=== PATIENT | male | born 1990 | race Caucasian/White ===

== ENCOUNTER 2021-04-02 18:05 | Emergency (ER) | payer OTHER, SELFPAY ==
--- NOTE | ~2021-04-02 | XR_ITS ---
EXAMINATION: XR ankle LT min 3V, XR foot LT min 3V DATE: 04/02/2021 18:32 INDICATION: Bruising and swelling at the lateral left foot and ankle after jumping 10 feet. TECHNIQUE: 1. Anteroposterior, mortise, additional oblique and lateral view of the left ankle were obtained. 2. Dorsoplantar, two oblique and lateral views of the left foot were obtained. COMPARISON: None. FINDINGS: Alignment of the foot and ankle is normal. Subtle linear lucencies projecting over the cuboid on the lateral projection which are suspicious for nondisplaced fracture. Mild soft tissue swelling at the d orsolateral aspect of the midfoot. Joint spaces are well maintained. No ankle joint effusion. IMPRESSION: 1. Suspicion for nondisplaced fracture of the cuboid. Would consider CT for more definitive determina tion. Reviewed, dictated and finalized at location A. IMPRESSION: 1. Suspicion for nondisplaced fracture of the cuboid. Would consider CT for mor e definitive determination.
--- NOTE | ~2021-04-02 | CT_ITS ---
EXAMINATION: CT foot LT wo con DATE: 04/02/2021 19:08 INDICATION: Cuboid fracture TECHNIQUE: Computed tomography (CT) of the left foot and ankle was performed without intravenous cont rast. Sagittal and coronal reconstructions were obtained. Automated exposure control and iterative re construction technique were employed. The dose-length product was 344.61 mGy-cm. COMPARISON: Radiographs dated 04/02/2021 FINDINGS: Mildly comminuted intra-articular fracture of the cuboid. The main fracture plane extends obliquely b etween the proximal and distal articular surfaces of the cuboid with up to 2-3 mm widening of the fra cture plane at the proximal articular surface and with less than 1 mm lucent fracture gap at the dist al articular surface. There is a second subtle nondisplaced fracture plane extending obliquely across the dorsolateral aspect of the proximal articular surface. There is an additional nondisplaced fract ure extending horizontally across the plantar aspect of the lateral cuneiform which does not appear t o involve the articular surface. No other fractures identified. Normal alignment of the joint space w ith no joint space narrowing. Small bone island at the lateral malleolus. Soft tissue swelling with s ubcutaneous edema at the dorsolateral aspect of the midfoot. Soft tissues are otherwise unremarkable. No ankle joint effusion. IMPRESSION: 1. Mildly comminuted and minimally displaced intra-articular fracture of the cuboid. 2. Nondisplaced fracture at the plantar aspect of the lateral cuneiform without evident involvement o f the articular cortex. Reviewed, dictated and finalized at location A. IMPRESSION: 1. Mildly comminuted and minimally displaced intra-articular fracture of the cu boid. 2. Nondisplaced fracture at the plantar aspect of the lateral cuneiform without evident involvement of the articular cortex.
[2021-04-02 18:07] VITALS: BP 118/71; PULSE 74; RESP 20; TEMP 36.5; O2SAT 100
--- NOTE | 2021-04-02 18:46 | ED.GENADULT ---
HPI - General Adult General Chief complaint: Extremity Injury, Lower Stated complaint: left foot injury Time Seen by Provider: 04/02/21 18:10 Source: patient, family and RN notes reviewed Mode of arrival: ambulatory Limitations: no limitations History of Present Illness HPI narrative: Patient is a 30-year-old male who presents to emergency department for evaluation of left ankle and foot injury patient jumped off the top of a car last night injuring the left foot ankle area is bruising at the ankle and midfoot where he has aching pain and pressure has been able to bear weight with pain presents per private vehicle has not been seen for this complaint denies similar occurrence in the past has been walking on the extremity Related Data Allergies Allergy/AdvReac Type Severity Reaction Status Date / Time morphine Allergy Unknown Verified 04/02/21 18:09 Review of Systems Review of Systems: All systems reviewed & are unremarkable except as noted in HPI and below PMFSH Social History Social History (Updated 04/02/21 @ 18:55 by Mark Suero PA-C) Smoking status: Never smoker Exam Narrative: Exam Narrative: GENERAL: Well-appearing, well-nourished, and in no acute distress. HEAD: Normocephalic, atraumatic. EYES: PERRLA and EOMI. ENT: Nares clear, no rhinorrhea or epistaxis. Mucous membranes moist. EXTREMITIES: bruising swelling and tenderness to the lateral ankle and midfoot of the left lower extremity SKIN: Warm, dry, no rash. NEURO: No focal deficits. Alert and oriented x3. Neurovascularly intact PSYCH: Normal mood and affect. Course Course Emergency Course: Patient evaluated for left ankle foot injury was placed in posterior splint with crutches and orthopedic follow-up aware of recommendations and discussion with the orthopedist Consultations Consultation #1: Discussed case with Dr. Yoder the orthopedic surgeon who will follow the patient in clinic. Posterior mold and crutches Date: 04/02/21 Time: 19:34 Vital Signs Vital signs: Vital Signs Temperature 97.7 F 04/02/21 18:07 Pulse Rate 74 04/02/21 18:07 Respiratory Rate 20 04/02/21 18:07 Blood Pressure 118/71 04/02/21 18:07 Pulse Oximetry 100 04/02/21 18:07 Temperature 97.7 F 04/02/21 18:07 Pulse Rate 74 04/02/21 18:07 Respiratory Rate 20 04/02/21 18:07 Blood Pressure 118/71 04/02/21 18:07 Pulse Oximetry 100 04/02/21 18:07 Medical Decision Making MDM Narrative Medical decision making narrative: Patients injury or pain is consistent with musculoskeletal etiology. No signs of neurological or vascular compromise on exam. Compartments and tisues are soft without signs of compartment syndrome. Pain is felt appropriate for further evaluation on an outpatient basis. Diagnosed with left ankle fracture Vital Signs Vital Signs: Vital Signs Temperature 97.7 F 04/02/21 18:07 Pulse Rate 74 04/02/21 18:07 Respiratory Rate 20 04/02/21 18:07 Blood Pressure 118/71 04/02/21 18:07 Pulse Oximetry 100 04/02/21 18:07 Temperature 97.7 F 04/02/21 18:07 Pulse Rate 74 04/02/21 18:07 Respiratory Rate 20 04/02/21 18:07 Blood Pressure 118/71 04/02/21 18:07 Pulse Oximetry 100 04/02/21 18:07 Imaging Data Radiologist's impression: ITS Impressions Ankle X-Ray 04/02/21 18:34 IMPRESSION: 1. Suspicion for nondisplaced fracture of the cuboid. Would consider CT for more definitive determination. Foot X-Ray 04/02/21 18:34 IMPRESSION: 1. Suspicion for nondisplaced fracture of the cuboid. Would consider CT for more definitive determination. Foot CT 04/02/21 19:09 IMPRESSION: 1. Mildly comminuted and minimally displaced intra-articular fracture of the cuboid. 2. Nondisplaced fracture at the plantar aspect of the lateral cuneiform without evident involvement of the articular cortex. Discharge Plan Discharge Clinical Impression: Ankle fracture, left Patient Disposition: Home, S
== END 2021-04-02 21:54 | disposition home or self-care (01) ==
PROVIDERS: Emergency Provider Emergency Medicine; PCP Nurse Practitioner
DX: S82.892A Other fracture of left lower leg, initial encounter for closed fracture (principal); V87.8XXA Person injured in other specified noncollision transport accidents involving motor vehicle (traffic), initial encounter
CPT/HCPCS: 29515; 73610; 73630; 73700; 99284